=== PATIENT | male | born 1990 | race Caucasian/White ===

== ENCOUNTER 2016-10-17 21:39 | Emergency (ER) | payer OTHER ==
[2016-10-17 22:13] LABS: BASOPHIL 0.2 % (0-2); EOSINOPHIL 0.1 % (0-5); HCT 44.7 % (42.0-52.0); HGB 15.5 g/dl (13.2-18.0); LYMPHOCYTE 10.9 % (15-48); MCH 30.4 pg (25.0-31.0); MCHC 34.7 g/dL (32.0-36.0); MCV 87.6 fL (78.0-100.0); MONOCYTE 8.6 % (0-12); MPV 11.9 fL (6.0-9.5); NEUTROPHIL 80.2 % (41-80); PLT 196 K/uL (150-400); RDW 12.7 % (11.5-14.0); WBC 18.1 K/uL (4.0-10.5)
[2016-10-17 22:25] LABS: BILIRUBIN - TOTAL 0.5 mg/dL (0.1-1.0); CREATININE 1.2 mg/dL (0.7-1.2); GLOBULIN (CALCULATION) 2.6 g/dL (2.2-4.2); POTASSIUM 3.9 mmol/L (3.5-5.1); TOTAL PROTEIN 7.6 g/dL (6.4-8.3)
[2016-10-17 22:52] LABS: BILIRUBIN NEGATIVE (NEGATIVE); BLOOD 3+ Ery/uL (NEGATIVE); COLOR YELLOW (YELLOW); GLUCOSE (U) NORMAL (NORMAL); KETONE (U) NEGATIVE (NEGATIVE); LEUKOCYTES NEGATIVE Leu/uL (NEGATIVE); NITRITE NEGATIVE (NEGATIVE); PROTEIN NEGATIVE (NEGATIVE); SPECIFIC GRAVITY 1.015 (1.001-1.030); UROBILINOGEN 0.2 mg/dL (0.2-1.0); pH 7.5 (5.0-9.0)
[2016-10-17 22:56] LABS: LACTIC ACID 2.2 mmol/L (0.5-2.2)
[2016-10-17 22:57] LABS: CLARITY SLIGHTLY HAZY (CLEAR)
[2016-10-17 23:03] LABS: TRIPLE PHOSPHATE CRYSTALS MODERATE
== END 2016-10-18 01:27 | disposition home or self-care (01) ==
LOC: FER 21:39
PROVIDERS: Nurse Practitioner
DX: N13.2 Hydronephrosis with renal and ureteral calculous obstruction (principal); I10 Essential (primary) hypertension; J45.909 Unspecified asthma, uncomplicated; F17.210 Nicotine dependence, cigarettes, uncomplicated; Z87.39 Personal history of other diseases of the musculoskeletal system and connective tissue
CPT/HCPCS: 36415; 76870; 80053; 81001; 83605; 85025; 87040; 87339; J1170; J1885; J2270; J2405

== ENCOUNTER 2016-10-20 16:15 | Emergency (ER) | payer OTHER | END 2016-10-20 19:30 | disposition home or self-care (01) | LOC: FER 16:15 | DX: N20.1 Calculus of ureter (principal); K21.9 Gastro-esophageal reflux disease without esophagitis; J45.909 Unspecified asthma, uncomplicated; F17.210 Nicotine dependence, cigarettes, uncomplicated | CPT/HCPCS: J1885; J2405 ==